=== PATIENT | female | born 1960 | race African-American/Black ===

== ENCOUNTER 2018-05-01 10:34 | Inpatient (IN) | payer MEDICAID ==
[~2018-05-01] VITALS: Ht 160 cm; Wt 61.0 kg
[2018-05-01 10:40] VITALS: Ht 160 cm; Wt 61.0 kg
[2018-05-01 12:28] LABS: BASOPHIL % 0.3 % (0-2)
[2018-05-01 12:32] LABS: RED CELL DISTRIBUTION WIDTH 14.6 % (11.5-14.5)
[2018-05-01 12:35] LABS: PLATELET COUNT 724 x10^3mcL (130-400)
[2018-05-01 12:40] LABS: ALKALINE PHOSPHATASE 284 U/L (46-116); ALT/SGPT 24 U/L (14-59); AMYLASE 70 U/L (25-115); AST/SGOT 22 U/L (15-37); BILIRUBIN DIRECT 0.16 mg/dL (0.0-0.2); BILIRUBIN TOTAL 0.33 mg/dL (0.20-1.00); CALCIUM 9.7 mg/dL (8.5-10.1); CARBON DIOXIDE 26.7 mmol/L (21-32); CHLORIDE SERUM 89 mmol/L (98-107); CREATININE SERUM 1.7 mg/dL (0.6-1.0); GFR1 33 mL/min; GLUCOSE SERUM 101 mg/dL (74-106); LIPASE 142 IU/L (73-393); POTASSIUM SERUM 4.6 mmol/L (3.5-5.1)
[2018-05-01 12:41] LABS: ALBUMIN 2.6 g/dL (3.4-5.0); SODIUM SERUM 124 mmol/L (136-145); TOTAL PROTEIN, SERUM 8.8 g/dL (6.4-8.2)
[2018-05-01 13:45] LABS: AMPHETAMINE QUAL UR NONE DETECTED (See below)
[2018-05-01 15:21] VITALS: BP 127/78
[2018-05-01 15:23] LABS: MAGNESIUM 1.8 mg/dL (1.8-2.4)
[2018-05-01 15:31] LABS: T3 TOTAL 1.02 ng/mL
[2018-05-01 15:42] LABS: FREE T4 1.32 ng/dL (0.76-1.46); FREE THYROXINE INDEX 3.3 ug/dL (1.4-4.5); T4(THYROXINE) 10.6 ug/dL (4.7-13.3)
[2018-05-01 20:00] VITALS: BP 125/76
[2018-05-01 22:55] VITALS: BP 125/76
[2018-05-02 00:13] VITALS: BP 113/77
== END 2018-05-02 01:36 | disposition short-term general hospital (02) | DRG 469 ==
LOC: ED 10:34 → MU 13:30
PROVIDERS: Emergency Medicine; Internal Medicine
DX: N17.0 Acute kidney failure with tubular necrosis (principal); E87.1 Hypo-osmolality and hyponatremia; K75.89 Other specified inflammatory liver diseases; B18.2 Chronic viral hepatitis C; D63.8 Anemia in other chronic diseases classified elsewhere; F11.10 Opioid abuse, uncomplicated; Z85.038 Personal history of other malignant neoplasm of large intestine; Z93.3 Colostomy status; Z59.0 Homelessness
CPT/HCPCS: 84439; G0480; J7030; Q0092